=== PATIENT | male | born 1950 | race Caucasian/White ===

== ENCOUNTER 2023-12-31 13:32 | Outpatient (RCR) | payer MEDICARE ==
[2023-12-28 16:01] LABS: ALBUMIN 3.9 g/dL (3.5-5.0); ANION GAP 14.5 mmol/L (8-16); BILIRUBIN,TOTAL 0.5 mg/dL (0.2-1.2); CALCIUM 9.3 mg/dL (8.4-10.2); CREATININE, SERUM 0.88 mg/dL (0.72-1.25); POTASSIUM 4.5 mmol/L (3.5-5.1)
[~2023-12-31 13:32] MED LIST: COLLAGENASE OINTMENT 30 GM TUBE ONE; LIDOCAINE VISC 2% SOLN 15 ML UDC ONE; LIDOCAINE/PRILOCAINE 2.5-2.5% KIT ONE; MINERAL OIL/PETROLAT/GLYCERI 6OZ BTL ONE
== END 2024-01-03 ==
LOC: WCC 13:32
PROVIDERS: ATTEND Nurse Practitioner Family
DX: I87.311 Chronic venous hypertension (idiopathic) with ulcer of right lower extremity (principal); L97.812 Non-pressure chronic ulcer of other part of right lower leg with fat layer exposed; R60.0 Localized edema
CPT/HCPCS: 36415; 80053; 84134; 87071; 87075; 87186; 87205

== ENCOUNTER 2024-02-02 13:01 | Outpatient (RCR) | payer MEDICARE ==
[~2024-02-02 13:01] MED LIST changes: -COLLAGENASE OINTMENT 30 GM TUBE ONE; +TRIAMCINOLONE ACET 0.1% CREAM 15 GM TUBE ONE
== END 2024-02-03 ==
LOC: WCC 13:01
PROVIDERS: ATTEND Nurse Practitioner Family
DX: I87.311 Chronic venous hypertension (idiopathic) with ulcer of right lower extremity (principal); L97.812 Non-pressure chronic ulcer of other part of right lower leg with fat layer exposed; R60.0 Localized edema
CPT/HCPCS: 11042; 15271 ×4; 29581 ×6; 99212 ×5; 99213 ×2; Q4101 ×8

== ENCOUNTER 2024-05-04 13:05 | Outpatient (RCR) | payer MEDICARE ==
[~2024-05-04 13:05] MED LIST changes: -TRIAMCINOLONE ACET 0.1% CREAM 15 GM TUBE ONE
[2024-05-04] MEDS ORDERED: MINERAL OIL/PETROLAT/GLYCERI 6OZ BTL ONE (18:15)
[2024-05-04] MEDS ORDERED: LIDOCAINE VISC 2% SOLN 15 ML UDC ONE (18:15)
== END 2024-05-05 ==
LOC: WCC 13:05
PROVIDERS: ATTEND Nurse Practitioner Family
DX: I87.311 Chronic venous hypertension (idiopathic) with ulcer of right lower extremity (principal); L97.812 Non-pressure chronic ulcer of other part of right lower leg with fat layer exposed; L97.811 Non-pressure chronic ulcer of other part of right lower leg limited to breakdown of skin; R60.0 Localized edema
CPT/HCPCS: 87071; 87075; 87186; 87205

== ENCOUNTER 2024-05-25 09:42 | Outpatient (RCR) | payer MEDICARE ==
[~2024-05-25 09:42] MED LIST changes: -LIDOCAINE/PRILOCAINE 2.5-2.5% KIT ONE; -MINERAL OIL/PETROLAT/GLYCERI 6OZ BTL ONE; +MUPIROCIN 2% OINT 22 GM TUBE ONE
[2024-05-25] MEDS ORDERED: LIDOCAINE VISC 2% SOLN 15 ML UDC ONE (12:44)
[2024-05-25] MEDS ORDERED: MINERAL OIL/PETROLAT/GLYCERI 2OZ CRM ONE (12:44)
[2024-05-25] MEDS ORDERED: LIDOCAINE/PRILOCAINE 2.5-2.5% KIT ONE (12:44)
[2024-05-25] MEDS ORDERED: MUPIROCIN 2% OINT 22 GM TUBE ONE (12:44)
== END 2024-06-02 ==
LOC: WCC 09:42
PROVIDERS: ATTEND Nurse Practitioner Family
DX: I87.311 Chronic venous hypertension (idiopathic) with ulcer of right lower extremity (principal); L97.812 Non-pressure chronic ulcer of other part of right lower leg with fat layer exposed; L97.811 Non-pressure chronic ulcer of other part of right lower leg limited to breakdown of skin; R60.0 Localized edema

== ENCOUNTER 2024-06-15 10:38 | Outpatient (RCR) | payer MEDICARE | END 2024-07-03 | LOC: WCC 10:38 | PROVIDERS: ATTEND Nurse Practitioner Family | DX: I87.311 Chronic venous hypertension (idiopathic) with ulcer of right lower extremity (principal); L97.812 Non-pressure chronic ulcer of other part of right lower leg with fat layer exposed; R60.0 Localized edema ==